=== PATIENT | male | born 1965 | race Asian ===

== ENCOUNTER 2020-05-14 09:32 | Outpatient (CLI) | payer OTHER, SELFPAY | END 2020-05-14 23:59 | disposition home or self-care (01) | LOC: MLB 09:32 → EDSTATUS 05-23 10:27 | PROVIDERS: ATTEND Internal Medicine Gastroenterology | DX: U07.1 COVID-19 (principal) | CPT/HCPCS: U0003 ==

== ENCOUNTER 2020-08-15 07:16 | Day surgery (SDC) | payer OTHER, SELFPAY ==
[~2020-08-15] VITALS: Ht 167.6 cm; Wt 68.0 kg
[2020-08-15] MEDS ORDERED: diphenhydrAMINE 50 MG/ML VIAL ONE (09:29)
[2020-08-15] MEDS ORDERED: LIDOCAINE 2% 100 MG/5 ML UJET TP ONE (09:30)
[2020-08-15] MEDS ORDERED: MIDAZOLAM 5 MG/5 ML VIAL ONE (09:30)
[2020-08-15] MEDS ORDERED: fentaNYL citrate 0.05 MG/ML VIAL ONE (09:30)
[2020-08-15] MEDS ORDERED: MIDAZOLAM 2 MG/2 ML VIAL IVP ONE (13:05)
[2020-08-15] MEDS ORDERED: fentaNYL citrate 0.05 MG/ML VIAL IVP ONE (13:05)
== END 2020-08-15 12:19 | disposition home or self-care (01) ==
LOC: MDS 07:16 → MMU 07:16 → MDS 12:19
PROVIDERS: ATTEND Internal Medicine Gastroenterology
DX: Z12.11 Encounter for screening for malignant neoplasm of colon (principal); K63.5 Polyp of colon; K57.30 Diverticulosis of large intestine without perforation or abscess without bleeding; Z87.891 Personal history of nicotine dependence; Z79.899 Other long term (current) drug therapy; Z20.828 Contact with and (suspected) exposure to other viral communicable diseases
CPT/HCPCS: 45385; 88305; J2250; J3010; U0003; J1200